=== PATIENT | female | born 1945 | race Caucasian/White ===

== ENCOUNTER → 2017-04-27 | Outpatient (CLI) | payer MEDICARE, OTHER | LOC: M.RAD 13:00 | DX: M47.896 Other spondylosis, lumbar region (principal); M41.86 Other forms of scoliosis, lumbar region; R10.2 Pelvic and perineal pain ==

== ENCOUNTER → 2017-04-30 | Outpatient (CLI) | payer MEDICARE, OTHER | LOC: M.NUC 04-27 13:11 | DX: M54.5 Low back pain (principal); M79.622 Pain in left upper arm ==

== ENCOUNTER → 2017-08-03 | Outpatient (CLI) | payer MEDICARE, OTHER | LOC: M.RAD 15:35 | DX: S42.211A Unspecified displaced fracture of surgical neck of right humerus, initial encounter for closed fracture (principal); M19.011 Primary osteoarthritis, right shoulder; X58.XXXA Exposure to other specified factors, initial encounter; Y93.89 Activity, other specified; Y92.89 Other specified places as the place of occurrence of the external cause; Y99.8 Other external cause status ==

== ENCOUNTER → 2019-09-06 | Outpatient (CLI) | payer MEDICARE, OTHER | LOC: M.RAD 16:48 | PROVIDERS: ATTEND Internal Medicine | DX: M48.061 Spinal stenosis, lumbar region without neurogenic claudication (principal); E74.39 Other disorders of intestinal carbohydrate absorption; K86.89 Other specified diseases of pancreas; I10 Essential (primary) hypertension; M79.601 Pain in right arm; M79.602 Pain in left arm; M25.78 Osteophyte, vertebrae; J98.4 Other disorders of lung ==

== ENCOUNTER → 2019-09-12 | Outpatient (CLI) | payer MEDICARE, OTHER | LOC: M.ULTRA 09-08 08:27 | PROVIDERS: ATTEND Internal Medicine | DX: Z12.31 Encounter for screening mammogram for malignant neoplasm of breast (principal); I65.23 Occlusion and stenosis of bilateral carotid arteries; S32.050D Wedge compression fracture of fifth lumbar vertebra, subsequent encounter for fracture with routine healing; M85.88 Other specified disorders of bone density and structure, other site; X58.XXXD Exposure to other specified factors, subsequent encounter ==

== ENCOUNTER → 2020-08-14 | Outpatient (CLI) | payer MEDICARE, OTHER | LOC: M.ULTRA 15:00 | PROVIDERS: ATTEND Internal Medicine | DX: M79.662 Pain in left lower leg (principal); M79.89 Other specified soft tissue disorders ==